=== PATIENT | male | born 1970 | race Hispanic/Latino ===

== ENCOUNTER 2021-09-23 07:32 | Day surgery (SDC) | payer BC ==
[2021-09-23] MEDS: NA CHLORIDE 0.9% 1,000 ML ONE ×2 (08:00→08:32)
[2021-09-23] MEDS ORDERED: propofoL 200 MG/20 ML VIAL IV ONE ×2 (08:37→09:04)
--- NOTE | 2021-09-23 08:58 | ENDO RPT ---
[address], [address] COLONOSCOPY PROCEDURE REPORT EXAM DATE: 09/23/2021 PATIENT NAME: Angel Jones MR #: [id number] BIRTHDATE: 1970 ATTENDING: Lance Harding MD STATUS: outpatient RN MOBILE: Milvia HO, Peggy Alcazar RN, and Ale Sedgwick Lauren INDICATIONS: The patient is a 51 yr old Male here for a colonoscopy due to colon cancer screening PROCEDURE PERFORMED: Colonoscopy MEDICATIONS: Per Anesthesia. ESTIMATED BLOOD LOSS: None CONSENT: The patient understands the risks and benefits of the procedure and understands that these risks include, but are not limited to: sedation, allergic reaction, infection, perforation and/or bleeding. Alternative means of evaluation and treatment include, among others: physical exam, x-rays, and/or surgical intervention. The patient elects to proceed with this endoscopic procedure. DESCRIPTION OF PROCEDURE: During intra-op preparation period all mechanical medical equipment was checked for proper function. Hand hygiene and appropriate measures for infection prevention was taken. Procedure, possible complications, alternatives including, but not limited to possibility of bleeding, perforation, tear, infection, sepsis, need for surgery, need for blood transfusion, were explained to the patient. After the risks, benefits and alternatives of the procedure were thoroughly explained, Informed consent was verified, confirmed and timeout was successfully executed by the treatment team. The patient was placed in the left lateral position. A digital rectal exam was performed and revealed external hemorrhoids. After appropriate level of anesthesia, the scope was passed. The EC-[id number] ([id number]) endoscope was introduced through the anus and advanced to the cecum, which was identified by transillumination from the light source, the appendix, and the ileocecal valve. The quality of the prep was fair. The instrument was then slowly withdrawn as the colon was fully examined. Scope withdrawal time was . COLON FINDINGS: Small internal and external hemorrhoids were found. Retroflexed views revealed no abnormalities. The scope was then completely withdrawn from the patient and the procedure terminated. ADVERSE EVENTS: There were no complications. IMPRESSIONS: Small internal and external hemorrhoids RECOMMENDATIONS: follow-up: office 1-2 week(s) RECALL: Return in 5-10 year(s) for Colonoscopy. Lance Harding MD eSigned: Lance Harding MD 09/23/2021 8:57 AM cc: Hemanth Carlson MD CPT CODES: ICD9 CODES: PATIENT NAME: Angel Jones MR#: [id number]
[2021-09-23 09:52] VITALS: O2SAT 96
[2021-09-23 09:55] VITALS: BP 113/83; TEMP 98
== END 2021-09-23 09:30 | disposition home or self-care (01) ==
LOC: OR 07:32
PROVIDERS: ATTEND Surgery
PROC: 0DJD8ZZ Inspection of Lower Intestinal Tract, Via Natural or Artificial Opening Endoscopic (ICD-10-PCS; principal; 2021-09-23 09:00)
DX: Z12.11 Encounter for screening for malignant neoplasm of colon (principal); K64.8 Other hemorrhoids; K64.4 Residual hemorrhoidal skin tags; E11.9 Type 2 diabetes mellitus without complications; Z20.822 Contact with and (suspected) exposure to COVID-19; Z83.3 Family history of diabetes mellitus
CPT/HCPCS: 82947; 45378; U0003; J2704 ×2; J7030